=== PATIENT | male | born 1985 | race Two or more races ===

== ENCOUNTER 2020-07-01 10:52 | Inpatient (IN) | payer MEDICARE, OTHER ==
[~2020-07-01] VITALS: Ht 175.3 cm; Wt 95.2 kg
[2020-07-01 12:01] LABS: Basophils # (auto) 0.1 10 ^3/uL (0-0.2); Eosinophils # (auto) 0.1 10 ^3/uL (0-0.8); Hematocrit 46.7 % (41.0-53.0); Hemoglobin 15.5 g/dL (13.5-17.5); Monocytes # (auto) 0.7 10 ^3/uL (0-1.3); Platelet Count (auto) 468 10^3/uL (140-450)
[2020-07-01 12:03] LABS: Eosinophils % (auto) 0.6 % (0.0-7.0); Lymphocytes # (auto) 1.9 10 ^3/uL (0.4-5.4); Lymphocytes % (auto) 18.9 % (10.0-50.0); Mean Corpuscular Hemoglobin 28.6 pg (28.0-32.0); Mean Corpuscular Hgb Conc. 33.3 g/dL (32.0-36.0); Mean Corpuscular Volume 85.9 fL (80.0-100.0); Monocytes % (auto) 6.8 % (0.0-12.0); Neutrophils # (auto) 7.4 10 ^3/uL (1.6-8.6); Neutrophils % (auto) 72.7 % (37.0-80.0); Red Blood Cells 5.44 10^6/uL (4.5-5.90); Red Cell Distribution Width 13.9 % (11.8-14.3); White Blood Cell 10.2 10^3/uL (4.4-10.8)
[2020-07-01 12:18] LABS: Albumin 2.8 g/dL (3.4-5.0); Anion Gap 5 (5-15); Blood Urea Nitrogen 7 mg/dL (7-18); Calcium 8.4 mg/dL (8.5-10.1); Carbon Dioxide 27 mmol/L (21-32); Chloride 106 mmol/L (98-107); Glucose 102 mg/dL (74-106); Magnesium 2.6 mg/dL (1.6-2.6); Potassium 3.6 mmol/L (3.5-5.1); Sodium 138 mmol/L (136-145)
[2020-07-01 12:26] LABS: Alanine Aminotransferase 64 U/L (16-61); Alkaline Phosphatase 40 U/L (45-117); Aspartate Aminotransferase 32 U/L (15-37); BUN/Creatinine Ratio 9.7; Bilirubin, Total 0.5 mg/dL (0.2-1.0); CRP High Sensitivity 3.69 mg/dL (< 0.3); GFR African American 161 mL/min; GFR Non-African American 133 mL/min
[2020-07-01] MEDS ORDERED: KETOROLAC TROMETH 30 MG/ML 1ML VIAL IV ONE (15:00)
[2020-07-01] MEDS ORDERED: ACETAMINOPHEN 500 MG TAB PO PRN (15:00)
[2020-07-01] MEDS ORDERED: MORPHINE SULF INJ 2 MG/ML SYRINGE 1ML IV PRN ×2 (15:00)
[2020-07-01] MEDS ORDERED: ONDANSETRON HCL 4 MG/2 ML VIAL IV PRN (15:00)
[2020-07-01] MEDS ORDERED: guaiFENesin-DM 100/10mg/5ml SYR PO PRN (15:00)
[2020-07-01] MEDS ORDERED: NITROGLYCERIN 0.4 MG SL TAB SL PRN (15:00)
[2020-07-01] MEDS ORDERED: RIVA15TA PO (16:24)
[2020-07-01] MEDS ORDERED: MET50T PO (16:25)
[2020-07-01] MEDS ORDERED: DORZ2SOL18 EACHEYE (16:25)
[2020-07-01] MEDS: BUDESONIDE (INHALATION) 180 MCG IH IN SCH (22:00)
[2020-07-01] MEDS: ENOXAPARIN SOD 40 MG/0.4 ML SYRINGE SC SCH (23:09)
[2020-07-02 06:03] LABS: Basophils # (auto) 0 10 ^3/uL (0-0.2); Eosinophils # (auto) 0 10 ^3/uL (0-0.8); Eosinophils % (auto) 0.3 % (0.0-7.0); Monocytes % (auto) 7.9 % (0.0-12.0)
[2020-07-02 06:05] LABS: Basophils % (auto) 0.4 % (0.0-2.0); Hematocrit 43.4 % (41.0-53.0); Hemoglobin 14.3 g/dL (13.5-17.5); Lymphocytes # (auto) 2.2 10 ^3/uL (0.4-5.4); Lymphocytes % (auto) 20.6 % (10.0-50.0); Mean Corpuscular Hemoglobin 28.3 pg (28.0-32.0); Mean Corpuscular Volume 85.8 fL (80.0-100.0); Monocytes # (auto) 0.8 10 ^3/uL (0-1.3); Neutrophils # (auto) 7.5 10 ^3/uL (1.6-8.6); Neutrophils % (auto) 70.8 % (37.0-80.0); Platelet Count (auto) 470 10^3/uL (140-450); Red Blood Cells 5.05 10^6/uL (4.5-5.90); Red Cell Distribution Width 14.3 % (11.8-14.3); White Blood Cell 10.6 10^3/uL (4.4-10.8)
[2020-07-02 06:19] LABS: Potassium 4.1 mmol/L (3.5-5.1)
[2020-07-02 06:39] LABS: Albumin 2.8 g/dL (3.4-5.0); BUN/Creatinine Ratio 11.5; Bilirubin, Total 0.6 mg/dL (0.2-1.0); Calcium 8.8 mg/dL (8.5-10.1); Total Protein 8.2 g/dL (6.4-8.2)
[2020-07-02] MEDS: cefTRIAXone 1GM/50ML D5W 50 ML IV SCH (08:49)
[2020-07-02] MEDS: HYDROcodone-ACET 5/325MG TAB PO PRN (08:52)
[2020-07-02] MEDS: CHOLECALCIFEROL (VITD3) 2,000 UNIT CAP PO SCH (09:56)
[2020-07-02] MEDS: ZINC SULFATE 220mg CAP or TAB PO SCH (09:56)
[2020-07-02] MEDS: ASCORBIC ACID 1,000 MG TAB PO SCH (09:56)
[2020-07-02] MEDS: ENOXAPARIN SOD 40 MG/0.4 ML SYRINGE SC SCH (09:56)
[2020-07-02] MEDS: DexAMETHasone SOD PHOS 10MG/1ML VIAL INJ IV SCH (09:57)
[2020-07-02] MEDS: BUDESONIDE (INHALATION) 180 MCG IH IN SCH ×2 (10:00→22:00)
[2020-07-02] MEDS ORDERED: AZITHROMYCIN 500MG/ 250ML 250 ML IV SCH (10:00)
[2020-07-02] MEDS: FAMOTIDINE 20 MG TAB PO SCH (10:03)
[2020-07-02] MEDS ORDERED: IOHEXOL 350 MG/ML 100ML IJ ONE (12:23)
[2020-07-02] MEDS ORDERED: REMDESIVIR PER PHARMACY 0 ML IV SCH (13:30)
[2020-07-02] MEDS ORDERED: ENOXAPARIN SOD 60 MG/0.6 ML SYRINGE SC ONE (14:00)
[2020-07-02] MEDS ORDERED: REMDESIVIR 200 MG in NS 210ml LOADING DOSE ADULT IV ONE (16:00)
[2020-07-02] MEDS: ENOXAPARIN SOD 100 MG/1 ML SYRINGE SC SCH (21:51)
[2020-07-03] MEDS: BUDESONIDE (INHALATION) 180 MCG IH IN SCH ×2 (06:17→21:36)
[2020-07-03] MEDS: ALBUTEROL SULF HFA 90MCG INH 200DOSE IN PRN ×2 (07:30→21:36)
[2020-07-03 07:40] LABS: Potassium 4.4 mmol/L (3.5-5.1)
[2020-07-03 07:51] LABS: BUN/Creatinine Ratio 18.8; Calcium 9.4 mg/dL (8.5-10.1)
[2020-07-03 09:00] VITALS: BP 110/74
[2020-07-03] MEDS: DexAMETHasone SOD PHOS 10MG/1ML VIAL INJ IV SCH (09:31)
[2020-07-03] MEDS: cefTRIAXone 1GM/50ML D5W 50 ML IV SCH (09:31)
[2020-07-03] MEDS: ENOXAPARIN SOD 100 MG/1 ML SYRINGE SC SCH (09:31)
[2020-07-03] MEDS: ZINC SULFATE 220mg CAP or TAB PO SCH (09:32)
[2020-07-03] MEDS: FAMOTIDINE 20 MG TAB PO SCH (09:32)
[2020-07-03] MEDS: CHOLECALCIFEROL (VITD3) 2,000 UNIT CAP PO SCH (09:32)
[2020-07-03] MEDS: ASCORBIC ACID 1,000 MG TAB PO SCH (09:32)
[2020-07-03] MEDS ORDERED: ENOXAPARIN SOD 100 MG/1 ML SYRINGE SC SCH (10:00)
[2020-07-03 13:00] VITALS: BP 134/85
[2020-07-03] MEDS: REMDESIVIR 100 MG in SODIUM CHL 0.9% 250 ML IV SCH (14:10)
[2020-07-03 16:00] VITALS: BP 119/67
[2020-07-03] MEDS: APIXABAN 5 MG TAB PO SCH (21:50)
[2020-07-03] MEDS: HYDROcodone-ACET 5/325MG TAB PO PRN (21:51)
[2020-07-03] MEDS: DOXYCYCLINE 100 MG TAB/CAP PO SCH (21:51)
[2020-07-04] VITALS: BP 104/59
[2020-07-04 08:00] VITALS: BP 118/68
[2020-07-04] MEDS: BUDESONIDE (INHALATION) 180 MCG IH IN SCH (09:50)
[2020-07-04] MEDS: ALBUTEROL SULF HFA 90MCG INH 200DOSE IN PRN (09:50)
[2020-07-04] MEDS: APIXABAN 5 MG TAB PO SCH (09:50)
[2020-07-04] MEDS: cefTRIAXone 1GM/50ML D5W 50 ML IV SCH (09:50)
[2020-07-04] MEDS: DexAMETHasone SOD PHOS 10MG/1ML VIAL INJ IV SCH (09:51)
[2020-07-04] MEDS: ZINC SULFATE 220mg CAP or TAB PO SCH (09:51)
[2020-07-04] MEDS: CHOLECALCIFEROL (VITD3) 2,000 UNIT CAP PO SCH (09:51)
[2020-07-04] MEDS: ASCORBIC ACID 1,000 MG TAB PO SCH (09:51)
[2020-07-04] MEDS: FAMOTIDINE 20 MG TAB PO SCH (09:51)
[2020-07-04] MEDS: DOXYCYCLINE 100 MG TAB/CAP PO SCH (09:55)
[2020-07-04] MEDS ORDERED: METH4PAK PO (12:30)
[2020-07-04] MEDS ORDERED: ZINC220T6 PO (12:30)
[2020-07-04] MEDS ORDERED: CHOL1CAP47 PO (12:30)
[2020-07-04] MEDS ORDERED: PANT40TA2 PO (12:30)
[2020-07-04] MEDS ORDERED: APIX5TAB PO (12:30)
[2020-07-04] MEDS ORDERED: DOXY-112 PO (12:30)
[2020-07-04 13:19] VITALS: BP 107/76
[2020-07-04] MEDS: REMDESIVIR 100 MG in SODIUM CHL 0.9% 250 ML IV SCH (14:11)
[2020-07-10] MEDS ORDERED: APIXABAN 5 MG TAB PO SCH (10:00)
== END 2020-07-04 16:36 | disposition home or self-care (01) | DRG 177 ==
LOC: ER 10:52 → OVERFLOW 10:53 → TELE-WESTW 07-02 18:23
PROVIDERS: ADMIT Nurse Practitioner Acute Care; ATTEND Internal Medicine
PROC: XW033E5 Introduction of Remdesivir Anti-infective into Peripheral Vein, Percutaneous Approach, New Technology Group 5 (ICD-10-PCS; principal; 2020-07-02)
DX: U07.1 COVID-19 (principal); J12.89 Other viral pneumonia; J96.01 Acute respiratory failure with hypoxia; E43 Unspecified severe protein-calorie malnutrition; I26.99 Other pulmonary embolism without acute cor pulmonale; R65.11 Systemic inflammatory response syndrome (SIRS) of non-infectious origin with acute organ dysfunction; F84.0 Autistic disorder; D68.59 Other primary thrombophilia; Z86.73 Personal history of transient ischemic attack (TIA), and cerebral infarction without residual deficits; Z68.31 Body mass index [BMI] 31.0-31.9, adult; E88.09 Other disorders of plasma-protein metabolism, not elsewhere classified
CPT/HCPCS: 36415; 71045; 71275; 80048; 80053; 82728; 83735; 84484; 85025; 85379; 86141; 87040; 87426; 87804; 93970; 94640; 96372; 96374; G0378; J0696; J1100; J1885